=== PATIENT | male | born 1995 | race African-American/Black ===

== ENCOUNTER 2017-10-26 19:17 | Emergency (ER) | payer BC, SELFPAY ==
[2017-10-26] MEDS ORDERED: Dexamethasone 4 MG TAB ONE (20:30)
== END 2017-10-26 20:52 | disposition home or self-care (01) ==
LOC: ERS 19:17
DX: J02.9 Acute pharyngitis, unspecified (principal)
CPT/HCPCS: 87081; 87430; 99283; J8540

== ENCOUNTER 2017-10-27 01:04 | Emergency (ER) | payer BC, SELFPAY | END 2017-10-27 01:42 | disposition left against medical advice (07) | LOC: ERS 01:04 | DX: Z53.21 Procedure and treatment not carried out due to patient leaving prior to being seen by health care provider (principal) ==